=== PATIENT | male | born 1990 | race Caucasian/White ===

== ENCOUNTER 2017-03-15 06:07 | Emergency (ER) | payer OTHER ==
[~2017-03-15] VITALS: Ht 170.2 cm; Wt 69.8 kg
[2017-03-15] MEDS ORDERED: LIDOCAINE 1%, 20ML SQ ONE (07:00)
[2017-03-15] MEDS ORDERED: BENZOCAINE 20% SPRAY 0.5ML TP ONE (07:00)
[2017-03-15] MEDS ORDERED: HYDROcodone/APAP 5/325 TABLET PO ONE (07:00)
[2017-03-15] MEDS ORDERED: LIDOCAINE 1%, 20ML ONE (07:04)
[2017-03-15] MEDS ORDERED: BENZOCAINE 20% SPRAY 0.5ML ONE (07:04)
[2017-03-15] MEDS ORDERED: HYDROcodone/APAP 5/325 TABLET ONE (07:04)
[2017-03-15 07:21] VITALS: BP 157/100
== END 2017-03-15 07:48 | disposition home or self-care (01) ==
LOC: ED 06:54
DX: K02.9 Dental caries, unspecified (principal)
CPT/HCPCS: 41800; 96372; 99284; J3490; 40800

== ENCOUNTER 2018-08-18 11:43 | Emergency (ER) | payer OTHER ==
[~2018-08-18] VITALS: Ht 167.6 cm; Wt 70.0 kg
[2018-08-18] MEDS ORDERED: CEFTRIAXONE 250 MG ONE (12:22)
[2018-08-18] MEDS ORDERED: AZITHROMYCIN 250 MG TABLET ONE (12:25)
[2018-08-18] MEDS ORDERED: AZITHROMYCIN 500 MG TABLET PO ONE (12:30)
[2018-08-18] MEDS ORDERED: CEFTRIAXONE 250 MG IM ONE (12:30)
[2018-08-18 13:13] VITALS: BP 139/71
== END 2018-08-18 13:15 | disposition home or self-care (01) ==
LOC: ED 13:09
DX: L02.215 Cutaneous abscess of perineum (principal); N34.2 Other urethritis; F17.200 Nicotine dependence, unspecified, uncomplicated
CPT/HCPCS: 10060; 96372; 99284; J0696; 56405